=== PATIENT | male | born 1950 | race Caucasian/White ===

== ENCOUNTER 2019-03-08 07:18 | Emergency (ER) | payer OTHER ==
[~2019-03-08] VITALS: Ht 165.1 cm; Wt 99.8 kg
[~2019-03-08 07:18] MED LIST: CLONAZEPAM1 MG PO; COZAAR25 MG PO; LOTRISONE CREAM45 GM TP; NORVASC5 MG PO; SEPTRA DS TABLE1 TAB PO; SEROQUEL25 MG PO; SYNTHROID50 MCG; TOPROL XL25 MG PO
== END 2019-03-08 08:53 | disposition home or self-care (01) ==
LOC: ER 07:18
DX: B37.89 Other sites of candidiasis (principal)